=== PATIENT | female | born 2000 | race Two or more races ===

== ENCOUNTER 2019-04-11 02:27 | Emergency (ER) | payer SELFPAY ==
[~2019-04-11] VITALS: Ht 162.6 cm; Wt 58.5 kg
[2019-04-11 02:30] VITALS: BP 133/90
--- NOTE | 2019-04-11 02:30 | NUR ---
TO BED # 04 AMBULATORY
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
--- NOTE | 2019-04-11 02:50 | NUR ---
DR LOVELL AT BEDSIDE EXAMINING PT
--- NOTE | 2019-04-11 02:53 | NUR ---
PT AMBULATED TO RESTROOM.
--- NOTE | 2019-04-11 03:09 | NUR ---
PT UNABLE TO GIVE URINE. PT SIGNED CONSENT FOR CT STATING SHE IS AGREEING TO HAVE CT W/O TEST.
[2019-04-11 03:13] LABS: BASOPHILS # (AUTO) 0.1 K/uL (0.00-0.22); BASOPHILS % (AUTO) 0.8 % (0.0-2.0); EOSINOPHILS # (AUTO) 0.1 K/uL (0-0.4); EOSINOPHILS % (AUTO) 2.1 % (0.0-4.0); HEMATOCRIT 37.8 % (36-48); LYMPHOCYTES # (AUTO) 2.8 K/uL (2.5-16.5); LYMPHOCYTES % (AUTO) 42.5 % (20.5-51.1); MEAN CORPUSCULAR HEMOGLOBIN 26 pg (27-31); MEAN CORPUSCULAR HGB CONC 32 g/dL (33-37); MEAN CORPUSCULAR VOLUME 82.2 fL (80-94); MONOCYTES # (AUTO) 0.4 K/uL (0.8-1.0); MONOCYTES % (AUTO) 6.4 % (1.7-9.3); NEUTROPHILS # (AUTO) 3.2 K/uL (1.8-7.7); NEUTROPHILS % (AUTO) 48.2 % (42.2-75.2); PLATELET COUNT (AUTO) 234 K/uL (140-450); RED CELL DISTRIBUTION WIDTH 13.8 % (11.6-13.7); WHITE BLOOD COUNT (AUTO) 6.6 K/uL (4.5-11.0)
[2019-04-11 03:22] LABS: ANION GAP 11.6 (8-16); CARBON DIOXIDE 30.4 mmol/L (21-32); CREATININE 0.7 mg/dL (0.6-1.3)
[2019-04-11 03:28] LABS: ALBUMIN 3.6 g/dL (3.4-5.0); TOTAL BILIRUBIN 0.2 mg/dL (0.0-1.0)
--- NOTE | 2019-04-11 03:59 | NUR ---
PATIENT ELOPED FROM FACILITY. DISCHARGE INSTRUCTIONS NOT GIVEN TO PATIENT. DR. LOVELL NOTIFIED.
== END 2019-04-11 03:59 | disposition left against medical advice (07) ==
LOC: MED 02:27
DX: M54.9 Dorsalgia, unspecified (principal)
CPT/HCPCS: 36415; 80053; 82150; 83690; 85025; 99283